=== PATIENT | male | born 1960 | race Two or more races ===

== ENCOUNTER 2022-09-23 11:52 | Emergency (ER) | payer BC, OTHER ==
[~2022-09-23] VITALS: Ht 175.3 cm; Wt 80.5 kg
[2022-09-23 14:54] LABS: Basophils # (auto) 0 10 ^3/uL (0-0.2); Basophils % (auto) 0.4 % (0.0-2.0); Eosinophils # (auto) 0 10 ^3/uL (0-0.8); Eosinophils % (auto) 0.1 % (0.0-7.0); Hematocrit 46.5 % (41.0-53.0); Hemoglobin 15.8 g/dL (13.5-17.5); Lymphocytes % (auto) 9.7 % (10.0-50.0); Mean Corpuscular Hemoglobin 31.8 pg (28.0-32.0); Mean Corpuscular Hgb Conc. 34.1 g/dL (32.0-36.0); Mean Corpuscular Volume 93.4 fL (80.0-100.0); Monocytes # (auto) 0.6 10 ^3/uL (0-1.3); Monocytes % (auto) 5.6 % (0.0-12.0); Neutrophils % (auto) 84.2 % (37.0-80.0); Nucleated Red Blood Cells % 0.1 %; Red Blood Cells 4.98 10^6/uL (4.5-5.90); Red Cell Distribution Width 13.4 % (11.8-14.3); White Blood Cell 10.7 10^3/uL (4.4-10.8)
[2022-09-23 15:03] VITALS: BP 144/79
[2022-09-23 15:03] LABS: Albumin 3.5 g/dL (3.4-5.0); BUN/Creatinine Ratio 21.4; Calcium 9.6 mg/dL (8.5-10.1); Potassium 4.6 mmol/L (3.5-5.1)
[2022-09-23] MEDS ORDERED: PROCHLORPERAZINE EDISYLATE 5 MG/ML 2ML VIAL IV ONE (15:45)
[2022-09-23] MEDS ORDERED: chlorproMAZINE HCL 25 MG/1 ML AMP IM ONE (15:45)
[2022-09-23 15:55] LABS: Bilirubin, Total 1.1 mg/dL (0.2-1.0)
[2022-09-23] MEDS ORDERED: METO5TAB2 PO (17:14)
[2022-09-23] MEDS ORDERED: MAALOX PLUS or MAALOX 30 ML PO ONE (17:15)
== END 2022-09-23 17:33 | disposition home or self-care (01) ==
LOC: ER 11:52
DX: R06.6 Hiccough (principal)
CPT/HCPCS: 36415; 80053; 83690; 85025; 96372; 99283; J3230

== ENCOUNTER 2025-04-11 20:03 | Emergency (ER) | payer BC, MEDICAID ==
[~2025-04-11] VITALS: Ht 177.8 cm; Wt 93.1 kg
[~2025-04-11 20:03] MED LIST: METO5TAB2 PO
[2025-04-11 20:14] VITALS: TEMP 99.8
[2025-04-11 21:13] VITALS: BP 119/71; PULSE 92; RESP 16; O2SAT 97
[2025-04-11] MEDS: TETANUS-DIPTH-ACEL PERTUSSIS 0.5ML SYR Tdap IM ONE (21:26)
--- NOTE | 2025-04-11 21:34 | ED.PDOC ---
Tony. trauma (HPI) HPI Comments 64 year old male presents to ER with complaints of fall injury x 1 day. Patient states he tripped and fell inside his house at 1:30 p.m. prior to arrival to ER and hit his head/mouth against tile mo. Denies LOC and states he did go to the dentist for evaluation of his mouth injury during fall and had x-ray imag ing done there along with laceration repair to lower inner lip. Notes he also sustained laceration to left 5th finger upon falling today. Patient presents to ER with use of cane, in no distress with abrasion noted to chin and stitches to inner lower lip and laceration to left 5th finger appreciated. Denies headache, neck pain, numbness/tingling, n/v, dizziness, use of blood thinners or any further symptoms/complaints Chief Complaint: Fall Injury Time Seen by MD: 20:46 Primary Care Provider: UNKNOWN Reviewed notes: Nurses Notes, Medications, Allergies Allergies: Coded Allergies: No Known Drug Allergy (Verified Allergy, Unknown, 09/23/22) Home Meds Active Scripts Metoclopramide Hcl (Metoclopramide Hcl) 5 Mg Tab, 5 MG PO Q6HPRN PRN, #20 TAB 0 Refills Prov:HIEN MELLO [facility] 09/23/22 Information Source: Patient Mode of Arrival: Wheelchair Past Medical History Past Medical History (Other): MS BPH Surgical History: Denies all surgeries Family History Family History: Unknown Social History Smoker: Non-Smoker Alcohol: Denies ETOH Use Drugs: Denies Drug Use Lives In: Home Constitutional: denies: chills, diaphoresis, fatigue, fever, malaise, sweats, weakness, others EENTM: reports: others (As stated in HPI) Respiratory: denies: cough, hemoptysis, orthopnea, SOB at rest, shortness of breath, SOB with excertion, stridor, wheezing, others Cardiovascular: denies: chest pain, dizzy spells, diaphoresis, Dyspnea on exertion, edema, irregular heart beat, left arm pain, lightheadedness, palpitations, PND, syncope, others Gastrointestinal: denies: abdomen distended, abdominal pain, blood streaked bowels, constipated, diarrhea, dysphagia, difficulty swallowing, hematemesis, melena, nausea, poor appetite, poor fluid intake, rectal bleeding, rectal pain, vomiting, others Genitourinary: denies: burning, dysuria, flank pain, frequency, hematuria, incontinence, penile discharge, penile sore, pain, testicle pain, testicle swelling, urgency, others Neurological: reports: others (As stated in HPI) Musculoskeletal: reports: others (As stated in HPI) Integumetry: denies: bruises, change in color, change in hair/nails, dryness, laceration, lesions, lumps, rash, wounds, others Allergic/Immunocompromised: denies: Difficulty Healing, Frequent Infections, Hives, Itching, others Hematologic/Lymphatic: denies: anemia, blood clots, easy bleeding, easy bruising, swollen glands, others Endocrine: denies: excessive hunger, excessive sweating, excessive thirst, excessive urination, flushing, intolerance to cold, intolerance to heat, unexplained weight gain, unexplained weight loss, others Psychiatric: denies: anxiety, bipolar disorder, depression, hopeless, panic disorder, schizophrenia, sleepless, suicidal, others Physical Exam General Appearance: No Apparent Distress HEENT: Normal ENT Inspection, PERRL/EOMI, Pharynx Normal, TMs Normal, Other (Abrasions to chin and stitches to inner lower lip also noted. No bleeding appreciated) Neck: Full Range of Motion, Non-Tender, Normal Respiratory: Chest Non-Tender, Lungs Clear, No Accessory Muscle Use, No Respiratory Distress, Normal Breath Sounds Cardiovascular: No Murmur, No Gallop, Regular Rate/Rhythm Breast Exam: Deferred Gastrointestinal: NOT DONE Genitalia: Deferred Pelvic: Deferred Rectal: Deferred Extremities: Normal capillary refill, Normal range of motion Neurologic: Alert (GCS 15), security rover II-XII nml as Tested, No Motor Deficits, Normal Affect, Normal Mood, No Sensory Deficits Cerebellar Function: Normal Reflexes: Normal Skin: Dry, Warm, Other (3 cm laceration noted to middle phalanx of left 5th finger. Slight TTP/swelling/erythema localized to wound edges. No nailbed injury/further skin changes noted. Patient able to fully move all fingers of left hand. Pulses intact) Peripheral Pulses: 2+ Radial (R), 2+ Radial (L), 2+ Brachial (R), 2+ Brachial (L) Lymphatic: No Adenopathy Was a procedure done? Was a procedure done?: Yes Sedation Sedation?: No Laceration Repair : Location Left 5th finger Length 3 cm Anesthetic: Lidocaine (1%), Without epi Laceration Repair Prep: Saline, Betadine, by Irrigation (heavily irrigated without any signs of foreign body) Laceration Repair Wound Comple: epidermis/dermis repair Laceration Repair: Number of sutures (6 placed - patient tolerated well without any complication), Size (5-0), Nylon, Simple, Non-adherent gauze Informed consent obtained: Yes Risks, benefits, and alternati: Yes Differential Diagnosis Multiple Trauma: Fractures, Vascular Injury Neck Injury: Spinal Cord Injury, Other (subdural hematoma, subarachnoid hemorrhage) X-Ray, Labs, Meds, VS Vital Signs Date Time Temp Pulse Resp B/P (MAP) Pulse Ox O2 Delivery O2 Flow Rate FiO2 04/11/25 21:13 Room Air* 0 21 04/11/25 21:13 92 16 119/71 (87) 97 04/11/25 20:14 99.8 92 16 119/71 97 99.8 Current Medications Medications (Trade) Dose Ordered Sig/Nahomi Route Start Time Stop Time Status Last Admin Diphtheria/ Tetanus/Acell Pertussis (Boostrix T-Dap) 0.5 ml ONCE ONCE IM 04/11/25 21:30 04/11/25 21:31 DC 04/11/25 21:26 Cefazolin Sodium 50 ml @ 100 mls/hr ONCE ONCE IV 04/11/25 22:15 04/11/25 22:44 04/11/25 22:13 Cefazolin Sodium 50 ml @ 100 mls/hr ONCE ONCE IV 04/11/25 22:15 04/11/25 22:44 04/11/25 22:14 Lidocaine HCl (Xylocaine 1%) ONCE ONCE ID 04/11/25 22:15 04/11/25 22:16 DC 04/11/25 22:10 PATIENT: ADONAY GAMBLET: [id number]: [id number] : 1960 LOC: ER ROOM / BED: / AGE / SEX: 64 / M ADM STATUS: REG ER SERVICE 16 ORDERING PHYSICIAN: BEHZAD ROBERTS PROCEDURE(s): LFIN5 - L 5TH FINGER XRAY REASON: left 5th finger x-ray ORDER NUMBER(s): [id number], ACCESSION NUMBER(s): [id number] CLINICAL INDICATION: left 5th finger x-ray TECHNIQUE: 3 radiographic views of the left 5th digit were obtained. Comparison: None FINDINGS/IMPRESSION: There is acute comminuted mildly displaced fracture of the 5th digit middle phalanx with dorsal angulation over the midportion and associated soft tissue edema and wound. ATED BY: SUSANNE MEDELLIN DO DICTATED DATE/TIME: 04/11/252157 SIGNED BY: SUSANNE MEDELLIN DO SIGNED DATE/TIME: 04/11/252157 CC: PATIENT: LOLITA GAMBLE ACCT: [id number] UNIT: [id number] : 1960 LOC: ER ROOM / BED: / AGE / SEX: 64 / M ADM STATUS: REG ER SERVICE 16 ORDERING PHYSICIAN: BEHZAD ROBERTS PROCEDURE(s): HWOCT - HEAD WITHOUT CONTRAST REASON: head injury ORDER NUMBER(s): [id number], ACCESSION NUMBER(s): [id number] Indication: head injury Comparison: None Technique: Utilizing a multislice CT scanner, a CT scan of the brain was performed without intravenous contrast. Coronal and sagittal reformatted images. All CT scans at this facility use dose modulation, iterative reconstruction, and/or weight based dosing when appropriate to reduce radiation dose to as low as reasonably achievable. Findings: There is no acute infarct, intracranial hemorrhage, or mass effect. There is no hydrocephalus or significant midline shift. There is mild chronic microvascular ischemic changes and mild parenchymal volume loss. No acute, depressed calvarial fractures. No large scalp hematomas. Retention cyst within the left maxillary sinus. Impression: 1. No acute intracranial process. ATED BY: KEKE MELCHOR MD DICTATED DATE/TIME: 04/11/252204 SIGNED BY: KEKE MELCHOR MD SIGNED DATE/TIME: 04/11/252204 CC: CT head without contrast reviewed Left 5th finger x-ray reviewed Tdap 0.5 mL IM ordered Hep lock IV ordered Ancef 2 mg IV ordered Finger splint applied Patient neurovascularly intact Advised to f/u in 2 days for wound check Advised to f/u in 10-14 days for removal of sutures Advised on elevation and alternate ice on/off as needed for pain/swelling Advised to follow up with PCP and orthopedic hand specialist in 1-2 days Patient verbalized understanding and agreeable with current plan of care Advised to return to ER immediately if symptoms worsen Images Reviewed?: Images reviewed and evaluated by me Time of 1ST Reevaluation: 21:30 Reevaluation 1ST: N/A Patient Education/Counseling: Diagnosis, Treatment, Prognosis, Need For Follow Up Family Education/Counseling: No Family Present Departure 1 Departure Time of Disposition: 22:30 Impression: Primary Impression: Finger fracture, left Qualified Codes: S62.607B - Fracture of unspecified phalanx of left little finger, initial encounter for open fracture Additional Impressions: Head injury Qualified Codes: S09.90XA - Unspecified injury of head, initial encounter Facial injury Qualified Codes: S09.93XA - Unspecified injury of face, initial encounter Disposition: HOME / SELF CARE / HOMELESS Condition: Stable e-Prescriptions Amoxicillin & Pot Clavulanate (Amoxicillin/Potassium Cla) 875 Mg Tab 1 TAB PO BID for 7 Days, #14 TAB 0 Refills Prov: BEHZAD ROBERTS 04/11/25 Acetaminophen (Acetaminophen) 500 Mg Tab 500 MG PO Q4HPRN, #30 TAB 0 Refills Prov: BEHZAD ROBERTS 04/11/25 Discharged With: Self Critical Care Note Critical Care Time?: No Stability Stability form required: No Heart Score Heart Score: Heart Score Response (Comments) Value History N/A 0 EKG N/A 0 Age N/A 0 Risk Factors N/A 0 Troponin N/A 0 Total 0 BEHZAD ROBERTS Apr 11, 2025 21:34
--- NOTE | 2025-04-11 22:01 | DVH ---
CLINICAL INDICATION: left 5th finger x-ray TECHNIQUE: 3 radiographic views of the left 5th digit were obtained. Comparison: None FINDINGS/IMPRESSION: There is acute comminuted mildly displaced fracture of the 5th digit middle phalanx with dorsal angul ation over the midportion and associated soft tissue edema and wound.
--- NOTE | 2025-04-11 22:07 | DVH ---
Indication: head injury Comparison: None Technique: Utilizing a multislice CT scanner, a CT scan of the brain was performed without intravenou s contrast. Coronal and sagittal reformatted images. All CT scans at this facility use dose modulation, iterative reconstruction, and/or weight based dosi ng when appropriate to reduce radiation dose to as low as reasonably achievable. Findings: There is no acute infarct, intracranial hemorrhage, or mass effect. There is no hydrocephalus or sign ificant midline shift. There is mild chronic microvascular ischemic changes and mild parenchymal volume loss. No acute, depressed calvarial fractures. No large scalp hematomas. Retention cyst within the left maxillary sinus. Impression: 1. No acute intracranial process.
[2025-04-11] MEDS: LIDOCAINE 1% HCL (LOCAL ANESTH.) INJ 20ML MDV ID ONE (22:10)
[2025-04-11] MEDS: ceFAZolin 1GM/50ML 50 ML IV ONE ×2 (22:13→22:14)
[2025-04-11] MEDS ORDERED: AMOX875T4 PO (22:33)
[2025-04-11] MEDS ORDERED: ACET500T58 PO (22:33)
== END 2025-04-11 22:47 | disposition home or self-care (01) ==
LOC: ER 20:03
DX: S62.627A Displaced fracture of middle phalanx of left little finger, initial encounter for closed fracture (principal); S01.511A Laceration without foreign body of lip, initial encounter; S61.217A Laceration without foreign body of left little finger without damage to nail, initial encounter; W01.0XXA Fall on same level from slipping, tripping and stumbling without subsequent striking against object, initial encounter; Y93.89 Activity, other specified; Y92.098 Other place in other non-institutional residence as the place of occurrence of the external cause; Y99.8 Other external cause status
CPT/HCPCS: 12002; 29130; 70450; 73140; 90471; 90715; 96365; 99285; J0690; J2003

== ENCOUNTER 2025-05-03 11:27 | Outpatient (CLI) | payer MEDICAID ==
[~2025-05-03 11:27] MED LIST changes: +ACET500T58 PO; +AMOX875T4 PO
[2025-05-03 12:23] LABS: Hematocrit 46.6 % (41.0-53.0); Hemoglobin 16.3 g/dL (13.5-17.5); Mean Corpuscular Hemoglobin 32.5 pg (28.0-32.0); Mean Corpuscular Volume 93.1 fL (80.0-100.0); Nucleated Red Blood Cells % 0.1 %
[2025-05-03 12:35] LABS: INR 1.0 (0.9-1.15); Partial Thromboplastin Time 26.8 SEC (24.5-34.5); Prothrombin Time 10.6 sec (9.3-11.8)
[2025-05-03 12:41] LABS: Urine Protein, UAD Negative (Negative)
[2025-05-03 12:44] LABS: Alanine Aminotransferase 38 U/L (7-40); Albumin 4.5 g/dL (3.2-4.8); Alkaline Phosphatase 61 U/L (46-116); Anion Gap 10 (5-15); BUN/Creatinine Ratio 14.7 (10.0-20.0); Blood Urea Nitrogen 16 mg/dL (9-23); Calcium 9.7 mg/dL (8.7-10.4); Carbon Dioxide 26 mmol/L (20-31); Chloride 103 mmol/L (98-107); Glucose 101 mg/dL (74-106); Potassium 4.1 mmol/L (3.5-5.1); Sodium 139 mmol/L (136-145); Total Protein 6.7 g/dL (5.7-8.2)
[2025-05-03 12:45] LABS: Bilirubin, Total 1.4 mg/dL (0.2-1.0)
== END 2025-05-03 17:00 | disposition home or self-care (01) ==
LOC: LAB 11:27
PROVIDERS: ATTEND Physician Assistant Medical
DX: M79.642 Pain in left hand (principal)
CPT/HCPCS: 36415; 80053; 81001; 85025; 85610; 85730